=== PATIENT | male | born 1965 | race Caucasian/White ===

== ENCOUNTER 2017-06-25 08:34 | Day surgery (SDC) | payer OTHER ==
[~2017-06-25 08:34] MED LIST: Lactated Ringers 1,000 ML IV SCH; Sodium Chloride 0.9% 10 ML Syringe FLUSH PRN; Sodium Chloride 0.9% 2.5 ML Syringe FLUSH PRN
--- NOTE | 2017-06-25 10:38 | PCM.PREANE ---
Preanesthetic Assessment - Procedure Proposed Procedure: screening colonoscopy - Anesthesia/Transfusion/Family Hx Anesthesia History: Prior Anesthesia Without Reaction Family History of Anesthesia Reaction: No - Review of Systems Pulmonary: No Symptoms Cardiovascular: No Symptoms Gastrointestinal: No Symptoms Neurological: Other (History of cervical fusion, chronic neck pain) Other: Reports: None - Physical Assessment NPO Status Date: 06/24/17 NPO Status Time: 23:55 O2 Sat by Pulse Oximetry: 94 Respiratory Rate: 16 Vital Signs: Last Vital Signs Temp 36.7 C 06/25/17 09:37 Pulse 95 06/25/17 09:37 Resp 16 06/25/17 09:37 BP 129/91 H 06/25/17 09:37 Pulse Ox 94 L 06/25/17 09:37 Height: 1.73 m Weight: 97.522 kg ASA Class: 2 Mental Status: Alert & Oriented x3 Airway Class: Mallampati = 2 Dentition: Reports: Broken Tooth/Teeth (broken tooth in back) Thyro-Mental Finger Breadths: 3 Mouth Opening Finger Breadths: 3 ROM/Head Extension: Limited/Partial (r/t cervical fusion) Lungs: Clear to Auscultation, Normal Respiratory Effort Cardiovascular: Regular Rate, Regular Rhythm - Allergies Allergies/Adverse Reactions: Allergies Allergy/AdvReac Type Severity Reaction Status Date / Time No Known Allergies Allergy Verified 06/22/17 14:26 - Acknowledgements Anesthesia Type Planned: MAC Pt an Appropriate Candidate for the Planned Anesthesia: Yes Alternatives and Risks of Anesthesia Discussed w Pt/Guardian: Yes Pt/Guardian Understands and Agrees with Anesthesia Plan: Yes PreAnesthesia Questionnaire Other HEENT History: uses reading glasses Musculoskeletal History: Reports: Neck Pain, Chronic (history of cervical fusion ) Neurological History: Reports: Headaches, Chronic Other Neuro History: constant headache from neck - Past Surgical History Head Surgeries/Procedures: Reports: None GI Surgical History: Reports: Colonoscopy Male Surgical History: Reports: Vasectomy Neurological Surgical History: Reports: C-Spine Other Neurological Surgeries/Procedures: fusion - SUBSTANCE USE Smoking Status *Q: Former Smoker Recreational Drug Use History: No - HOME MEDS Home Medications: Home Meds Aspirin [Adult Low Dose Aspirin EC] 81 mg PO DAILY 06/22/17 [History] Eszopiclone 3 mg PO DAILY 06/22/17 [History] Fish Oil/[place]-3 Fatty Acids [Fish Oil 1,000 MG] 1 gm PO DAILY 06/22/17 [History ] atorvaSTATin Calcium [Atorvastatin Calcium] 20 mg PO DAILY 06/22/17 [History] - CURRENT (IN HOUSE) MEDS Current Meds: Current Medications Lactated Ringer's (Ringers, Lactated) 1,000 mls @ 125 mls/hr IV ASDIRECTED JULIET Last Admin: 06/25/17 09:36 Dose: 125 mls/hr Sodium Chloride (Saline Flush) 10 ml FLUSH ASDIRECTED PRN PRN Reason: Keep Vein Open Sodium Chloride (Saline Flush) 2.5 ml FLUSH ASDIRECTED PRN PRN Reason: Keep Vein Open
[2017-06-25] MEDS ORDERED: Propofol 200 MG/20 ML SDV ONE (10:49)
[2017-06-25] MEDS ORDERED: Lidocaine 2% 5 ML SDV ONE (10:49)
--- NOTE | 2017-06-25 12:33 | PCM.POSTAN ---
POST ANESTHESIA ASSESSMENT - MENTAL STATUS Mental Status: Alert, Oriented - RESPIRATORY Respiratory Status: Respiratory Rate WNL, Airway Patent, O2 Saturation Stable - CARDIOVASCULAR CV Status: Pulse Rate WNL, Blood Pressure Stable - GASTROINTESTINAL GI Status: No Symptoms - PAIN Pain Score: 0 - POST OP HYDRATION Hydration Status: Adequate & Stable
--- NOTE | 2017-06-25 12:47 | PCM48HPAN ---
Post Anesthesia Note - EVALUATION WITHIN 48HRS OF ANESTHETIC Vital Signs in Normal Range: Yes Patient Participated in Evaluation: Yes Respiratory Function Stable: Yes Airway Patent: Yes Cardiovascular Function Stable: Yes Hydration Status Stable: Yes Pain Control Satisfactory: Yes Nausea and Vomiting Control Satisfactory: Yes Mental Status Recovered: Yes
--- NOTE | 2017-06-25 13:34 | PCM.OPNOTE ---
- General Post-Op/Procedure Note Date of Surgery/Procedure: 06/25/17 Operative Procedure(s): screening colonoscopy Findings: diverticulosis Pre Op Diagnosis: screening colonoscopy Post-Op Diagnosis: diverticulosis Anesthesia Technique: MAC Primary Surgeon: Josey Alegria Condition: Good Free Text/Narrative:: Intake & Output 06/24/17 06/25/17 06/25/17 22:59 06:59 14:59 Intake Total 950 Balance 950
[2017-06-25 14:22] VITALS: BP 129/90
--- NOTE | 2017-06-26 12:31 | OR ---
SURGEON: CHERRY MERLOS MD DATE OF PROCEDURE: 06/25/2017 PREOPERATIVE DIAGNOSIS: Screening colonoscopy. POSTOPERATIVE DIAGNOSIS: Diverticulosis. PROCEDURE PERFORMED: Screening colonoscopy. ANESTHESIA: MAC. INSTRUMENT USED: Olympus colonoscope. EXTENT OF EXAM: To the cecum. PREPARATION: Good. LIMITATIONS: None. INDICATIONS FOR EXAMINATION: The patient is a 51-year-old male who presents for screening colonoscopy. He had a colonoscopy 10 years ago which was normal other than some hemorrhoids. The patient and I discussed the procedure as well as the expected perioperative course. We discussed the risks including bleeding, infection, or damage to surrounding structures including perforation. The patient verbalized understanding and wishes to proceed. PROCEDURE IN DETAIL: The patient was brought into the endoscopy suite and placed in the left lateral decubitus position. A time-out was completed verifying the patient's name, age, date of , allergies, and procedure to be performed. Monitored anesthesia care was induced, and continuous oxygen was provided via nasal cannula throughout the procedure. After adequate sedation was achieved, a digital rectal exam was performed. This exam was within normal limits. A well- lubricated colonoscope was inserted into the rectum and advanced under direct visualization to the level of the cecum. The cecum was identified by both visual and anatomic landmarks. Photographs taken of the cecal cap as well as with the scope in a retroflexed position. The scope was then fully withdrawn while examining the color, texture, and integrity of the mucosa from the cecum to the anal canal. The findings were consistent with mild diverticulosis within the distal colon. The scope was then brought into the rectum and retroflexed to allow visualization of the anal canal opening. This appeared normal, and a photograph was taken. The scope was then straightened out and removed from the patient. The cecum to anus time was 8 minutes. The patient tolerated the procedure well and was taken to PACU in stable condition. ENDOSCOPIC DIAGNOSIS: Diverticulosis. RECOMMENDATIONS: I had a conversation with the patient in the postoperative care unit. We discussed diverticulosis including its pathogenesis. I explained the signs and symptoms of diverticulitis. I informed him that he does not need to make any dietary changes due to the diagnosis of diverticulosis, but should continue to strive for a diet high in fiber and drink 8 to 10 glasses of water per day. The patient will be due for a repeat colonoscopy in 10 years. We will cancel the patient's followup in clinic in 2 weeks and instead see him in 10 years when it is time for his next colonoscopy. IVET / JOSH /[id number]
== END 2017-06-25 13:05 | disposition home or self-care (01) ==
LOC: MW.SDS 08:34
PROVIDERS: ATTEND Surgery
DX: Z12.11 Encounter for screening for malignant neoplasm of colon (principal); M79.1 Myalgia; M96.1 Postlaminectomy syndrome, not elsewhere classified; M54.81 Occipital neuralgia; G89.29 Other chronic pain; M47.812 Spondylosis without myelopathy or radiculopathy, cervical region; G44.209 Tension-type headache, unspecified, not intractable; Z79.82 Long term (current) use of aspirin; Z79.899 Other long term (current) drug therapy; Z98.52 Vasectomy status; Z87.891 Personal history of nicotine dependence
CPT/HCPCS: 45378; J7120; 00810; J2704

== ENCOUNTER 2024-01-12 11:57 | Day surgery (SDC) | payer BC ==
[2024-01-12] MEDS: Lactated Ringers 1,000 ML IV SCH (13:15)
[2024-01-12] MEDS ORDERED: propofoL 50 ML ONE (13:17)
[2024-01-12 14:47] VITALS: BP 111/79; PULSE 82
== END 2024-01-12 15:00 | disposition home or self-care (01) ==
LOC: MW.SDS 11:57
PROVIDERS: ATTEND Surgery
DX: D12.2 Benign neoplasm of ascending colon (principal); D12.6 Benign neoplasm of colon, unspecified; K57.30 Diverticulosis of large intestine without perforation or abscess without bleeding; K64.8 Other hemorrhoids; I10 Essential (primary) hypertension; E78.00 Pure hypercholesterolemia, unspecified; Z79.899 Other long term (current) drug therapy
CPT/HCPCS: 45380; J2704; J7120; 00811

== ENCOUNTER 2025-01-28 13:42 | Emergency (ER) | payer BC ==
[2025-01-28] MEDS: Tetracaine HCl/PF 0.5% 4 ML Bottle EYEBOTH ONE (14:00)
[2025-01-28 14:58] VITALS: BP 137/85; PULSE 84
== END 2025-01-28 14:58 | disposition home or self-care (01) ==
LOC: MW.ED 13:42
DX: S05.02XA Injury of conjunctiva and corneal abrasion without foreign body, left eye, initial encounter (principal); I10 Essential (primary) hypertension; E78.00 Pure hypercholesterolemia, unspecified; Z88.8 Allergy status to other drugs, medicaments and biological substances; Z79.899 Other long term (current) drug therapy; Z75.3 Unavailability and inaccessibility of health-care facilities; W22.8XXA Striking against or struck by other objects, initial encounter
CPT/HCPCS: 99282; 99283; J3490